=== PATIENT | female | born 1960 | race Two or more races ===

== ENCOUNTER 2017-02-04 05:59 | Day surgery (SDC) | payer OTHER ==
[~2017-02-04] VITALS: Ht 154.9 cm; Wt 86.2 kg
[2017-02-04] VITALS (16 sets, daily range): BP systolic 101–129; BP diastolic 52–75
[2017-02-04] MEDS ORDERED: Sterile Water Irrig 1000ml IRRIG ONE (06:00)
[2017-02-04] MEDS ORDERED: oxyCONTIN 20mg tab ORAL ONE (06:00)
[2017-02-04] MEDS ORDERED: Midazolam 2mg/2ml Inj ONE (06:00)
[2017-02-04] MEDS ORDERED: Lidocaine 1% MPF 10mg/ml 5ml ONE (06:00)
[2017-02-04] MEDS ORDERED: Metoclopramide 10mg/2ml Inj ONE (06:00)
[2017-02-04] MEDS ORDERED: fentaNYL 100 mcg/2 mL IV ONE (06:00)
[2017-02-04] MEDS ORDERED: Dexamethasone 4mg/ml vial ONE (06:00)
[2017-02-04] MEDS ORDERED: NS Irrig 1000ml ONE (06:00)
[2017-02-04] MEDS ORDERED: Propofol 10mg/ml 20ml IV ONE (06:00)
[2017-02-04] MEDS ORDERED: ceFAZolin 1gm in D5W 55ml IVP ONE (06:00)
[2017-02-04] MEDS ORDERED: celeBREX 200mg Cap **SURGERY PATIENTS ONLY ORAL ONE (06:00)
[2017-02-04] MEDS ORDERED: LR 1000ml ONE (06:00)
[2017-02-04] MEDS ORDERED: PANTOPRAZOLE SO40 MG ORAL (06:09)
[2017-02-04] MEDS ORDERED: TRAMADOL HCL50 MG ORAL (06:09)
[2017-02-04] MEDS ORDERED: IBUPROFEN600 MG ORAL (06:09)
[2017-02-04] MEDS ORDERED: NORVASC5 MG ORAL (06:09)
[2017-02-04] MEDS ORDERED: Ketorolac 30mg Inj ONE (06:58)
[2017-02-04] MEDS ORDERED: Duramorph PF 5mg/10ml amp ONE (06:58)
[2017-02-04] MEDS ORDERED: Kenalog-40 1ml Vial ONE (06:58)
[2017-02-04] MEDS ORDERED: EPINEPHrine 1mg/1ml Amp ONE (06:58)
[2017-02-04] MEDS ORDERED: Lidocaine 1% 10mg/ml/Epi 0.005mg/ml 30ml vial INJ ONE (06:59)
[2017-02-04] MEDS ORDERED: Bupivacaine 0.25% Inj 30ml INJ ONE (06:59)
[2017-02-04] MEDS ORDERED: Bupivacaine w/Epi 0.5% 30ml Vial INJ ONE (06:59)
[2017-02-04] MEDS ORDERED: Tylenol #3 tab (300mg/30mg) ORAL PRN (07:15)
[2017-02-04] MEDS ORDERED: D5 1/2NS 1,000 ML IV SCH (07:15)
[2017-02-04] MEDS ORDERED: HYDROmorphone 1mg/ml Carpuject SUBQ PRN (07:15)
[2017-02-04] MEDS ORDERED: Norco 5mg/325mg tab ORAL PRN (07:15)
--- NOTE | 2017-02-04 07:15 | Pre-Procedure Note/Attestation ---
Pre-Procedure Note/Attestation Complete Prior to Procedure Planned Procedure: left Procedure Narrative: knee arthroscopy possible menisectomy, possible synovectomy Indications for Procedure Pre-Operative Diagnosis: left knee internal derangment Attestation I attest that I discussed the nature of the procedure; its benefits; risks and complications; and alternatives (and the risks and benefits of such alternatives ), prior to the procedure, with the patient (or the patient's legal it sales representative). I attest that, if there was a reasonable possibility of needing a blood transfusion, the patient (or the patient's legal it sales representative) was given the [facility] standardized written summary, pursuant to the [place] Blood Safety Act ([place] Health and Safety Code # 1645, as amended). I attest that I re-evaluated the patient just prior to the surgery and that there has been no change in the patient's H&P, except as documented below: SASCHA PANTOJA Feb 04, 2017 07:15
--- NOTE | 2017-02-04 07:18 | Operative Note - PDOC ---
Operative Note Operative Note Pre-op Diagnosis: left knee internal derangment Procedure: see op report Post-op Diagnosis: same as pre-op plus Operative Findings: consistent w/pre-op dx studies Anesthesia: MAC Specimen: none Complications: none Condition: stable Estimated Blood Loss: none Implant(s) used?: SASCHA [place] Feb 04, 2017 07:18
--- NOTE | 2017-02-04 07:26 | Anethesia Preoperative Eval ---
Anesthesia Pre-op PMH/ROS General Date of Evaluation: Feb 04, 2017 Time of Evaluation: 07:25 Anesthesiologist: mariaelena ASA Score: ASA 2 Mallampati Score Class I : Soft palate, uvula, fauces, pillars visible Class II: Soft palate, uvula, fauces visible Class III: Soft palate, base of uvula visible Class IV: Only hard plate visible Mallampati Classification: Class II Surgeon: Melvin Diagnosis: knee pain Surgical Procedure: Dx Left Knee Scope Anesthesia History: none Family History: no anesthesia problems Allergies: Coded Allergies: CODEINE (Verified Allergy, Severe, NAUSEA, VOMITING, DIZZINESS, PALPITATIONS, 02/04/17) LISINOPRIL (Verified Allergy, Severe, COUGHING , 02/04/17) MORPHINE (Verified Allergy, Severe, NAUSEA, VOMITING, DIZZINESS, PALPITATIONS , 02/04/17) Past Medical History Cardiovascular: Reports: HTN Pulmonary: Denies: COPD, CHOLO, asthma, other Gastrointestinal/Genitourinary: Denies: CRI, ESRD, GERD, other Neurologic/Psychiatric: Denies: CVA, TIA, dementia, depression/anxiety, other Endocrine: Denies: DM, hypothyroidism, other, steroids HEENT: Denies: [place] (L), [place] (R), cataract (L), cataract (R), glaucoma, other Hematology/Immune: Denies: DVT, anemia, bleeding disorder, other Musculoskeletal/Integumentary: Denies: DDD, DJD, OA, RA, edema, other Other: obesity PSxH Narrative: face surgery? Anesthesia Pre-op Phys. Exam Physician Exam Last Vital Signs Date Time Temp Pulse Resp B/P Pulse Ox O2 Delivery O2 Flow Rate FiO2 02/04/17 06:30 97.9 54 20 123/75 99 Room Air Constitutional: NAD Neurologic: CN 2-12 intact Cardiovascular: RRR Respiratory: CTA Gastrointestinal: S/NT/ND Airway Exam MO: full Neck: thick ROM: full Dentures: no lower, no upper Anesthesia Pre-op A/P Studies Pre-op Studies: EKG - SB Risk Assessment & Plan Plan: General Status Change Before Surgery: No Pre-Antibiotics Drug: ancef Given Within 1 Hr of Incision: Yes Time Given: 07:30 HUDSON GREEN CRNA Feb 04, 2017 07:26
[2017-02-04] MEDS ORDERED: fentaNYL 100 mcg/2 mL IV PRN (07:30)
[2017-02-04] MEDS ORDERED: Metoclopramide 10mg/2ml Inj IVP PRN (07:30)
[2017-02-04] MEDS ORDERED: NS Irrig 4000ml IRRIG ONE (07:30)
--- NOTE | 2017-02-04 08:20 | Immediate Post-Op Evaluation ---
Immediate Post-Op Evalulation Immediate Post-Op Evalulation Procedure: Left Knee Dx Scope Date of Evaluation: Feb 04, 2017 Time of Evaluation: 08:15 IV Fluids: 500 Blood Pressure Systolic: 105 Blood Pressure Diastolic: 53 Pulse Rate: 74 Respiratory Rate: 14 O2 Sat by Pulse Oximetry: 100 Temperature (Fahrenheit): 98.9 Nausea: No Vomiting: No Complications none Patient Status: awake, reacts, patent Hydration Status: adequate Drug: ancef Given Within 1 Hr of Incision: Yes Time Given: 07:30 HUDSON GREEN CRNA Feb 04, 2017 08:20
--- NOTE | 2017-02-04 10:04 | 48 Hour Post Anesthesia Eval ---
Post Anesthesia Evaluation Procedure: Left Knee Dx Scope Date of Evaluation: Feb 04, 2017 Time of Evaluation: 10:04 Blood Pressure Systolic: 134 0: 77 Pulse Rate: 67 Respiratory Rate: 14 O2 Sat by Pulse Oximetry: 100 Airway: patent Nausea: Yes Vomiting: No Hydration Status: adequate Cardiopulmonary Status: stable Mental Status/LOC: patient returned to baseline Post-Anesthesia Complications: none Follow-up care needed: N/A HUDSON GREEN CRNA Feb 04, 2017 10:04
--- NOTE | 2017-02-04 13:45 | Operative Note - Dictated ---
DATE OF OPERATION: 02/04/2017 PREOPERATIVE DIAGNOSIS: Left knee internal derangement. POSTOPERATIVE DIAGNOSES: 1. Left knee hypertrophic synovial and ligamentum mucosum. 2. Grade 3 chondral damage, distal, medial, and femoral condyle measuring 4 x 4 mm. PROCEDURES: 1. Left knee diagnostic arthroscopy and chondroplasty. 2. Synovectomy medial lateral and patellofemoral compartment. SURGEON: Fredis Charles M.D. ANESTHESIA: MAC. INDICATION FOR PROCEDURE: The patient is a pleasant 56-year-old female, who had continued left knee pain. She had continued pain despite conservative measures. She elected to undergo left knee diagnostic arthroscopy, possible synovectomy, chondroplasty, and meniscectomy based on intraoperative findings. Risks, limitations, expectations, and complications of procedure were discussed in detail. All questions were addressed. DESCRIPTION OF PROCEDURE: An informed consent was obtained. The patient was brought to the operating room and placed under monitored anesthesia control. Under sterile condition, 20 mL of 0.25% Marcaine plain was injected into the left knee. Portal sites were injected with 1% lidocaine with epinephrine. Esmarch was used to exsanguinate the extremity. Inferolateral stab incision made. Trocar was introduced into the knee joint. There is significant hypertrophic fat pad synovial tissue making visualization patellofemoral compartment difficult. The medial compartment was entered. It was again very difficult to visualize. Therefore, the intercondylar notch was entered. Medial working portal was established and synovectomy of the medial retropatellar space as well as the compartments was performed. Medial compartment was then entered and free of any meniscal pathology. The ACL was probed and noted to be intact. Lateral compartment was entered free of any meniscal chondral damage. At this point, the camera was placed in patellafemoral compartment and retropatellar fat pad was removed. Once this was done, patellofemoral compartment was much easier. This area of chondral damage measured 4 x 4 mm in the distal anterior portion of the knee. Gentle chondroplasty was then performed. At this point, the instruments were removed. Portal sites were closed with 3-0 Monocryl sutures. Steri-Strips and sterile dressing were applied. Intraarticular injection containing 0.25% Marcaine with epinephrine, Toradol, Duramorph, and Kenalog was injected. Fredis Charles M.D. DR: LARRY JOB#: [id number] CC: STEPHANE
== END 2017-02-04 12:05 | disposition home or self-care (01) ==
LOC: SUR 05:59
DX: M67.262 Synovial hypertrophy, not elsewhere classified, left lower leg (principal); M94.8X6 Other specified disorders of cartilage, lower leg; I10 Essential (primary) hypertension; E66.9 Obesity, unspecified; Z88.5 Allergy status to narcotic agent; Z88.8 Allergy status to other drugs, medicaments and biological substances
CPT/HCPCS: 29875; 97161; J0171; J0690; J1100; J1885; J2250; J2405; J2704; J2765; J3010; J3301; J3490; J7120; 94003; 94150

== ENCOUNTER 2018-05-12 05:03 | Inpatient (IN) | payer OTHER ==
[2018-05-12] VITALS (13 sets, daily range): BP systolic 95–139; BP diastolic 48–82
[~2018-05-12] VITALS: Ht 154.9 cm; Wt 71.2 kg
[~2018-05-12 05:03] MED LIST: BACLOFEN10 MG ORAL; IBUPROFEN600 MG ORAL; NORVASC5 MG ORAL; PANTOPRAZOLE SO40 MG ORAL; SERTRALINE HCL25 MG ORAL; TRAMADOL HCL50 MG ORAL
[2018-05-12] MEDS ORDERED: LR 1000ml 1,000 ML IVLG SCH (06:07)
--- NOTE | 2018-05-12 06:10 | Anethesia Preoperative Eval ---
Anesthesia Pre-op PMH/ROS General Date of Evaluation: May 12, 2018 Time of Evaluation: 07:11 Anesthesiologist: Antonia ASA Score: ASA 2 Mallampati Score Class I : Soft palate, uvula, fauces, pillars visible Class II: Soft palate, uvula, fauces visible Class III: Soft palate, base of uvula visible Class IV: Only hard plate visible Mallampati Classification: Class II Surgeon: Chris Diagnosis: Neck Pain Surgical Procedure: ACDF C5-6 Anesthesia History: none Family History: no anesthesia problems Allergies: Coded Allergies: CODEINE (Verified Allergy, Severe, NAUSEA, VOMITING, DIZZINESS, PALPITATIONS, 02/04/17) LISINOPRIL (Verified Allergy, Severe, COUGHING , 02/04/17) MORPHINE (Verified Allergy, Severe, NAUSEA, VOMITING, DIZZINESS, PALPITATIONS , 02/04/17) Medications: see eMAR Patient NPO?: Yes NPO Date: May 11, 2018 NPO Time: 1900 Past Medical History Cardiovascular: Reports: HTN Neurologic/Psychiatric: Reports: depression/anxiety Other: obesity - BMI 30 PSxH Narrative: Cholecystectomy, L Knee Sx Anesthesia Pre-op Phys. Exam Physician Exam Last Vital Signs Date Time Temp Pulse Resp B/P (MAP) Pulse Ox O2 Delivery O2 Flow Rate FiO2 05/12/18 05:58 97.0 70 20 122/53 (76) 98 05/12/18 05:48 Room Air Constitutional: NAD Neurologic: CN 2-12 intact Cardiovascular: RRR Respiratory: CTA Gastrointestinal: S/NT/ND Airway Exam Mallampati Score: Class II MO: full ROM: limited Teeth: missing, intact Anesthesia Pre-op A/P Risk Assessment & Plan Assessment: ASA 2 Plan: GA, SED, GlideScope Go Status Change Before Surgery: No Pre-Antibiotics Dru Grams Ancef IV Given Within 1 Hr of Incision: Yes Time Given: 07:31 Keven Knight MD May 12, 2018 06:10
[2018-05-12] MEDS ORDERED: Zemuron 50mg/5ml Inj IV ONE (06:14)
[2018-05-12] MEDS ORDERED: Midazolam 2mg/2ml Inj IVP PRN (06:15)
[2018-05-12] MEDS ORDERED: Metoclopramide 10mg/2ml Inj IVP PRN (06:15)
[2018-05-12] MEDS ORDERED: Ketorolac 30mg Inj IV PRN ×2 (06:15)
[2018-05-12] MEDS ORDERED: DiphenhydrAMINE 50mg/ml Inj IVP PRN (06:15)
[2018-05-12] MEDS ORDERED: fentaNYL 100 mcg/2 mL IV PRN (06:15)
[2018-05-12] MEDS ORDERED: LORazepam Inj 2mg/ml 1ml IV PRN (06:15)
[2018-05-12] MEDS ORDERED: Atropine Sulfate 0.4mg/ml inj IVP PRN (06:15)
[2018-05-12] MEDS ORDERED: Meperidine 50mg/ml Inj(FOR RIGORS ONLY) IVP PRN (06:15)
[2018-05-12] MEDS ORDERED: Acetaminophen (Non formulary) 100 ML IV ONE (06:15)
[2018-05-12] MEDS ORDERED: Lidocaine 1% MPF 10mg/ml 5ml ONE (06:19)
[2018-05-12] MEDS ORDERED: Sodium Chloride 10ml vial INJ ONE (06:19)
[2018-05-12] MEDS ORDERED: Lidocaine 1% Plain 30 ml INJ ONE (06:20)
[2018-05-12] MEDS ORDERED: Bacitracin 50000 Units Vial ONE (06:45)
[2018-05-12] MEDS ORDERED: Thrombin 5000 units TOPIC ONE (06:45)
[2018-05-12] MEDS ORDERED: Gelfoam Size TOPIC ONE (06:45)
[2018-05-12] MEDS ORDERED: Sterile Water Irrig 1000ml IRRIG ONE (07:00)
[2018-05-12] MEDS ORDERED: Dexamethasone 20mg/5ml IVP ONE (07:00)
[2018-05-12] MEDS ORDERED: LR 1000ml ONE (07:00)
[2018-05-12] MEDS ORDERED: Neostigmine 1mg/ml 10ml Inj ONE (07:00)
[2018-05-12] MEDS ORDERED: Propofol 1,000mg/ 100ml btl IV ONE (07:00)
[2018-05-12] MEDS ORDERED: NS Irrig 1000ml ONE (07:00)
[2018-05-12] MEDS ORDERED: Labetalol 5mg/ml 20ml vial IV ONE (07:00)
[2018-05-12] MEDS ORDERED: ceFAZolin sod 1 GM in NS 55 ML IVPB ONE (07:00)
--- NOTE | 2018-05-12 07:01 | Immediate Post-Op Evaluation ---
Immediate Post-Op Evalulation Immediate Post-Op Evalulation Procedure: ACDF C5-6 Date of Evaluation: May 12, 2018 Time of Evaluation: 09:39 IV Fluids: 500 LR Blood Products: 0 Estimated Blood Loss: 10 Urinary Output: 0 Blood Pressure Systolic: 100 Blood Pressure Diastolic: 60 Pulse Rate: 52 Respiratory Rate: 16 O2 Sat by Pulse Oximetry: 100 Temperature (Fahrenheit): 97.3 Pain Score (1-10): 3 Nausea: No Vomiting: No Complications 0 Patient Status: awake, reacts, patent, extubated, none Hydration Status: adequate Dru Grams Ancef IV Given Within 1 Hr of Incision: Yes Time Given: 07:31 Keven Knight MD May 12, 2018 07:01
[2018-05-12] MEDS ORDERED: fentaNYL 100 mcg/2 mL IV ONE ×2 (07:05→08:06)
--- NOTE | 2018-05-12 07:10 | Pre-Procedure Note/Attestation ---
Pre-Procedure Note/Attestation Complete Prior to Procedure Planned Procedure: not applicable Procedure Narrative: C5-C6 ACDF Anterior internal plare fixation Indications for Procedure Pre-Operative Diagnosis: Post trauma HNP radiculopathy Attestation I attest that I discussed the nature of the procedure; its benefits; risks and complications; and alternatives (and the risks and benefits of such alternatives ), prior to the procedure, with the patient (or the patient's legal packaging sales representative). I attest that, if there was a reasonable possibility of needing a blood transfusion, the patient (or the patient's legal packaging sales representative) was given the [place] [facility] standardized written summary, pursuant to the [place] Blood Safety Act ([place] Health and Safety Code # 1645, as amended). I attest that I re-evaluated the patient just prior to the surgery and that there has been no change in the patient's H&P, except as documented below: Dennis Perez MD May 12, 2018 07:10
[2018-05-12] MEDS ORDERED: Chloraseptic Spray 20mL Bottle ORAL PRN (07:15)
[2018-05-12] MEDS ORDERED: HYDROcodone/Acetamin 10/325 tab ORAL PRN (07:15)
[2018-05-12] MEDS ORDERED: HYDROmorphone 1mg/ml Carpuject SUBQ PRN ×2 (07:15→07:30)
[2018-05-12] MEDS ORDERED: traMADol 50mg tab ORAL PRN (07:15)
--- NOTE | 2018-05-12 08:13 | 48 Hour Post Anesthesia Eval ---
Post Anesthesia Evaluation Procedure: ACDF C5-6 Date of Evaluation: May 12, 2018 Time of Evaluation: 11:45 Blood Pressure Systolic: 116 0: 67 Pulse Rate: 68 Respiratory Rate: 18 Temperature (Fahrenheit): 98.2 O2 Sat by Pulse Oximetry: 99 Airway: patent Nausea: No Vomiting: No Pain Intensity: 3 Hydration Status: adequate Cardiopulmonary Status: Stable Mental Status/LOC: patient returned to baseline Follow-up Care/Observations: 0 Post-Anesthesia Complications: 0 Follow-up care needed: ready to discharge Keven Knight MD May 12, 2018 08:13
[2018-05-12] MEDS ORDERED: Glycopyrrolate 0.2mg/ml 1ml Vial ONE (08:56)
[2018-05-12] MEDS ORDERED: Naloxone 0.4mg/ml Inj ONE (08:56)
[2018-05-12] MEDS ORDERED: Sertraline 50mg tab ORAL SCH (09:00)
--- NOTE | 2018-05-12 09:16 | Brief Operative Note ---
Immediate Post Operative Note Operative Note Pre-op Diagnosis: Post trauma HNP radiculopathy Procedure: ACDF C5-C6 Body Habotus SSEP Magnification Xray Anterior Plate Osteopromotive material placement Interbody Titanium Device Post-op Diagnosis: same as pre-op Findings: consistent w/pre-op dx studies Surgeon: Chris BAXTER It Security Engineer: Tara HANCOCK Anesthesiologist: Antonia BAXTER Anesthesia: general Specimen: yes Complications: none Condition: stable Fluids: anesthesia Estimated Blood Loss: minimal Drains: none Implant(s) used?: Yes Dennis Perez MD May 12, 2018 09:16
[2018-05-12] MEDS ORDERED: Naloxone 0.4mg/ml Inj IVP PRN (09:30)
[2018-05-12] MEDS ORDERED: LORazepam 0.5mg tab ORAL PRN (10:00)
--- NOTE | 2018-05-12 10:05 | Diagnostic Imaging Report ---
INDICATION: Pain, intraoperative TECHNIQUE: Intraoperative imaging Fluoroscopy time: 10.1 seconds Total dose: 0.49 mGy Total number of images: 3 COMPARISON: None FINDINGS: Intraoperative images demonstrates a surgical tool projected at the anterior aspect of the C5-6 disc. Subsequent images demonstrate anterior fusion and placement of a disc spacer at C5 and C6. IMPRESSION: Intraoperative imaging, as described
[2018-05-12] MEDS ORDERED: D5 1/2NS 1,000 ML IV SCH (11:17)
--- NOTE | 2018-05-12 16:30 | Operative Note - Dictated ---
DATE OF OPERATION: 05/12/2018 PRIMARY SURGEON: Dennis Perez, Ph.D, M.D. CHIPS SCREEN TENDER: KARISSA Guerin. ANESTHESIOLOGIST: Keven Knight M.D. ANESTHESIA: General with intubation. ADMITTING/PREOPERATIVE DIAGNOSIS: Cervical herniated nucleus pulposus post trauma with radiculopathy/neurologic deficit. POSTOPERATIVE DIAGNOSIS: Cervical herniated nucleus pulposus post trauma with radiculopathy/neurologic deficit. OPERATIVE PROCEDURE: Anterior cervical diskectomy with fusion C5-C6, placement of interbody device correction deformity, placement of osteopromotive material in combination with local autograft, anterior internal plate fixation, intraoperative fluoroscopy interpreted by surgeon, and high-powered microscopic dissection. SPECIMEN: Disc fragments to pathology. DESCRIPTION OF PROCEDURE: The patient was brought to the operating room and in supine position, general anesthesia intubation was induced. IV antibiotics and IV Decadron were administered 30 minutes prior to incision time. After determination of appropriate position for incision placement, the skin was marked with a left lateral incision in a skin fold. Sterilely prepped and draped free in usual sterile fashion. A transverse incision over the appropriate interval was sharply placed through dermis and epidermis. Electrocautery dissection was carried through the subcutaneous tissue to the level of the platysmas muscle that was identified, isolated, and transected in line with the incision. Blunt dissection was carried medial to the left sternocleidomastoid muscle and to the carotid sheath through the deep cervical pretracheal fascia to the midline between the right and left longus colli muscles. A spinal needle bent at 90-degree angle so as to avoid penetration greater than 3 mm into the disk space was placed under direct high-power magnification. A cross-table image was obtained under sterile conditions demonstrating the level as the correct level for the dissection. Level was marked. Needle removed. Retractors placed under the subperiosteally elevated longus colli muscles. They were not elevated greater than 3 mm in the medial and lateral extents. Anterior osteophyte was resected under high-power magnification with Midas Enrique bur dissection. Diskectomy performed to the posterior longitudinal ligament followed with Midas Enrique bur dissection of superior inferior osteophytes and no cartilaginous overlay to the endplates without violation of subchondral bone. Posterior longitudinal ligament resected. Disc fragment retrieved. Wound irrigated. No dural tears or leaks at anytime during the procedure. SSEP monitoring stable. Interpositional grafting with a titanium graft containing bioactive material with combination of local autograft lordotic tamped into position. Midline determined with the trial and position of the graft after insertion as midline determined too also. Posterior extents determined as excellent. The 10 pound of traction on the neck was removed. Anterior internal plate fixation in a compressive fashion with 13 mm screws was placed over the involved interval. Screws were locked into place. AP and lateral radiographs under sterile conditions taken and recorded demonstrating a midline positioning, excellent alignment, screw positioning excellent. Wound was irrigated with antibiotic-containing saline. Retractors removed. Exploration revealed no obvious excoriation or laceration of vital structures. Interval was re-irrigated with antibiotic-containing saline followed by application of FloSeal. Reapproximation of the platysmas muscle followed by subcuticular reapproximation surgical strips, sterile bandage maintained in place with tape. The patient was awakened, extubated in the operating room, and transported to postop recovery in good stable condition. Dennis Perez M.D. DR: BRUCE JOB#: [id number] CC:
[2018-05-12] MEDS ORDERED: TransDerm Scop 1mg/72HR Patch TDERMAL SCH (17:15)
[2018-05-12] MEDS ORDERED: LR 1000ml 1,000 ML IV ONE (17:15)
--- NOTE | 2018-05-12 17:15 | Consultation ---
DATE OF CONSULTATION: 05/12/2018 CONSULTING PHYSICIAN: Memo Watson M.D. REFERRING PHYSICIAN: Dennis Perez M.D. REASON FOR CONSULTATION: Acute pain consult. HISTORY OF PRESENT ILLNESS: Dear Dr. Perez, Thank you kindly for consulting me to evaluate and render an opinion as to how to proceed in the management of the patient's acute postoperative cervical spine pain after cervical spine instrumentation surgery today. The patient is a pleasant 57-year-old obese woman, who fell in a parking lot injuring her left arm and face. Today, she presented for cervical spine instrumentation surgery to help with her refractory pain. I saw the patient at the bedside with Armenian-speaking relays draftsperson, Dylon, and the patient's along with nurse RN Audrey, to help improve the patient's postoperative pain and help expedite her hospital discharge. I performed detailed history and physical examination. I reviewed the medical record in detail including multiple preoperative records from Dr. Forrest along with diagnostic testing including laboratory studies and imaging reports. I reviewed multiple records from today's date of surgery at [facility], dated May 12, 2018, including records from the nursing and pharmacy department, and the surgery suite. PAST MEDICAL HISTORY: 1. Acute postoperative cervical spine pain, status post cervical spine instrumentation surgery by Dr. Dennis Perez, April 2018. 2. Fall accident. 3. Obesity. 4. Anxiety and depression. 5. GERD. 6. Hypertension. 7. Multiple drug allergies. MEDICATIONS: At home, tramadol, Zoloft, Protonix, NSAIDs, baclofen, and Norvasc. PAST SURGICAL HISTORY: Left knee surgery. SOCIAL HISTORY: The patient is accompanied at the bedside by her . She has seven children. She denies tobacco, alcohol, or illicit drug use. FAMILY HISTORY: Noncontributory. ALLERGIES: Codeine and morphine cause nausea and vomiting. The patient has tolerated tramadol without problems. She does not have any recall regarding the usage of Dilaudid or hydrocodone. She does have a prescription already for Vicodin for outpatient usage. Lisinopril. REVIEW OF SYSTEMS: Per Dr. Forrest. PHYSICAL EXAMINATION: VITAL SIGNS: Age 57, height 5 feet 1 inch, weight 190 pounds, body mass index is 36. Vital signs in the medical record. HEENT: Extraocular muscles intact. Pupils are equal, round, and reactive to light and accommodative. No Carrillo's palsy. No Joe syndrome. NECK: A detailed neck exam per Dr. Perez. CHEST: Clear to auscultation. HEART: Regular rate and rhythm. ABDOMEN: Obese. Positive bowel sounds. BREASTS: Deferred. GENITOURINARY: Deferred. NEUROLOGIC: A detailed neurologic exam per Dr. Perez. Moving all extremities x4 preoperatively. LABORATORY AND DIAGNOSTIC DATA: Laboratory studies from May 04, 2018. Hepatitis B and C, and HIV are all negative. INR 0.9. White count 8, hematocrit 39, platelets 300. Urinalysis negative. PTT 27. Hemoglobin A1c normal 5.6, glucose 89, BUN 19, creatinine 0.7, sodium 141, potassium 3.9, chloride 104, bicarb 23, calcium 10.0. Total protein 7.4. Albumin 4.5. Total bilirubin 0.3. Alkaline phosphatase 100, AST 18, and ALT 23. CT cervical spine dated March 14, 2018. Impression, multiple level 2 mm disc osteophyte complexes with mild bilateral foraminal stenosis at C5-C6. Preoperative chest x-ray May 04, 2018, shows no acute intrathoracic disease. A 12-lead EKG shows normal sinus rhythm, ventricular rate 64, no evidence for acute cardiac ischemia. IMPRESSION: 1. Acute postoperative cervical spine pain, status post cervical spine instrumentation surgery by Dr. Dennis Perez, April 2018. 2. Fall accident. 3. Obesity. 4. Anxiety and depression. 5. GERD. 6. Hypertension. 7. Multiple drug allergies. TREATMENT RECOMMENDATIONS: After reviewing the medical record in detail and examined the patient at bedside, I have devised the following analgesic plan. The patient has multiple drug allergies. She states that codeine and morphine both cause significant vomiting. I have added multiple antiemetics starting with Zofran 4 mg intravenously every four hours p.r.n. for nausea and vomiting as a first-line agent. I have also ordered a second-line agent of Phenergan 12.5 mg intramuscularly every eight hours p.r.n. for refractory nausea. The patient has tolerated tramadol in the past, so I have ordered a dose of 50 mg of Ultram every eight hours p.r.n. for mild pain. The patient has a prescription already for Sub[place]o for outpatient usage, provided by Dr. Perez in the preop appointment. The patient does not have experience this medication that she can recall. Therefore, we will try [place] at a dose of 10/325 one tablet orally every three hours p.r.n. for moderate pain. Morphine is not tolerated, but the patient does not have any recall regarding Dilaudid. Therefore, I have ordered a dose of Dilaudid 0.5 mg subcutaneously every two hours p.r.n. for severe breakthrough pain. I have chosen the subcutaneous route, so that there may be less risk for nausea. In case of any headache complaints, I have ordered Fioricet tablets one tablet every eight hours p.r.n. The patient does have chronic anxiety and depression. I have restarted her Zoloft 50 mg daily and I have also ordered low-dose p.r.n. Ativan q. 6 hours in case of any anxiety or panic attacks. I will empirically place the patient on Protonix 40 mg nightly for GI ulcer prophylaxis. The patient chronically uses a proton pump inhibitor for chronic GERD and her obesity. I have also ordered p.r.n. dose of Mylanta 30 mL q.6 hours in case of any GERD symptom exacerbation. I have ordered Benadryl 25 mg q. 6 hours in case of any itching complaints. I will restart the patient on her Norvasc. I have split her daily dose of Norvasc, 10 mg Norvasc into b.i.d. dosing at a lower 5 mg dose. This dose will be held if her systolic blood pressure is less than 130 mmHg. I have also ordered p.r.n. dose of Catapres 0.1 mg every eight hours for systolic blood pressure readings greater than 160 mmHg. To help with any topical sore throat complaints, I have ordered Chloraseptic spray at the bedside. I have ordered incentive spirometer in this obese woman to encourage good pulmonary toilet and help reduce the risk of postoperative pneumonia and atelectasis. I will defer DVT prophylaxis to the surgeon. Memo Watson M.D. DR: HUY JOB#: [id number] CC:
[2018-05-12] MEDS ORDERED: Hydromorphone 0.5mg/0.5ml inj SUBQ SCH (17:16)
[2018-05-12] MEDS ORDERED: Chloraseptic Spray 20mL Bottle ORAL SCH (18:00)
[2018-05-12] MEDS ORDERED: LR 1000ml 1,000 ML IVLG ONE (18:00)
[2018-05-12] MEDS ORDERED: LORazepam 0.5mg tab ORAL SCH (21:00)
[2018-05-13] VITALS: BP 117/63
[2018-05-13 04:00] VITALS: BP 117/60
[2018-05-13 08:00] VITALS: BP 112/64
[2018-05-13] MEDS ORDERED: Sertraline 50mg tab ORAL SCH (09:00)
[2018-05-13] MEDS ORDERED: Chloraseptic Spray 20mL Bottle ORAL ONE (09:09)
[2018-05-13] MEDS ORDERED: Chloraseptic Spray 20mL Bottle ORAL PRN (10:15)
--- NOTE | 2018-05-13 10:15 | Progress Note ---
DATE: 05/13/2018 ACUTE PAIN MANAGEMENT PHYSICIAN PROGRESS NOTE MEDICATIONS: Medication administration record reviewed. Medications include Ultram, Zoloft, Phenergan, Protonix, Zofran, Narcan, Ativan, [place], Benadryl, Catapres, Soma, Norvasc, Mylanta, and Fioricet. LABORATORY STUDIES: No interval laboratory studies. OBJECTIVE: VITAL SIGNS: Afebrile, pulse 71, respirations 18, blood pressure 112/64, and oxygen saturation 97% on room air. I spent over 60 minutes in consultation today. I saw the patient at the bedside with the nurse RN, Haroldo. I had multiple discussions with multiple nurses over the past 24 hours. The patient was having persistent nausea symptoms with multiple episodes of emesis. She failed multiple trials of Zofran. She failed intramuscular Phenergan. Finally, I directed the pharmacist, Patel in discussion, to dispense a scopolamine patch, which was applied yesterday evening. Thankfully over the past 10 hours, the patient has no longer had any vomiting episodes and is able to tolerate a soft diet and fluids to adequately hydrate herself. The patient has been out of bed ambulating and voiding urine. She is afebrile. Her pain has been well controlled using subcutaneous Dilaudid injections. The patient has a supply of tramadol already at home and also a prescription for [place] from Dr. Perez for outpatient usage. The patient is swallowing, breathing, and phonating within normal limits after her neck surgery. I examined the cervical spine dressing, which was clean and dry. There was normal postoperative swelling and the patient appears non-toxic. She denies any shortness of breath or chest pain. She appears neurologically intact grossly. Moving all extremities x4. I explained proper use of the incentive spirometer and encouraged the patient to be aggressive walking and not to be bed-bound in order to reduce the risk for deep venous thrombosis postoperatively. The patient understood with assistance of a Tajik-speaking medical interpreter and I agree with discharge her to home at this time. The patient will follow up with Dr. Perez, outpatient clinic for surgical followup. Memo Watson M.D. DR: HUY JOB#: [id number] CC:
[2018-05-13 12:00] VITALS: BP 108/75
[2018-05-13] MEDS ORDERED: 1/2 NS 1000ml IV ONE (13:33)
--- NOTE | 2018-05-17 14:21 | Discharge Summary ---
Discharge Summary Hospital Course Date of Admission May 12, 2018 at 11:00 Date of Discharge May 13, 2018 at 13:34 Admitting Diagnosis Cervical herniated nucleus pulposus post trauma with radiculopathy/neurologic deficit. Reason for Hospitalization: elective surgery HPI Daja Mcmillan is a 57 year old female who was admitted on May 12, 2018 at 11: 00 for cervical herniated nucleus pulposus post trauma with radiculopathy/ neurologic deficit. Patient was admitted for further management. Consultations dr Watson -pain specialist Procedures s/p 05/[address] Perez Anterior cervical diskectomy with fusion C5-C6, placement of interbody device correction deformity, placement of osteopromotive material in combination with local autograft, anterior internal plate fixation, intraoperative fluoroscopy interpreted by surgeon, and high-powered microscopic dissection. Hospital Course status post surgery course of recovery uneventful initially IV fluids s/p perioperative antibiotics neurovascular status closely monitored, stable dressing clean dry and intact pain management addressed pain specialist followed; pain controlled hemodynamically stable ambulated with PT /OT fall precautions maintained; safe for ambulation tolerated liquid diet , IV fluids discontinued Chloraseptic spray/lozenges prn for comfort GI prophylaxis provided blood pressure was managed with calcium channel bryn and remained stable home medications for depression resumed voided freely bowel regimen instituted patient was stable for discharge discharge instructions provided follow up with surgeon as advsied FINAL DIAGNOSES cervical herniated nucleus pulposus post trauma with radiculopathy/neurologic deficit. s/p ACDF C5-C6 Obesity. Anxiety and depression. GERD. Hypertension. Discharge Medications Continued Medications: Amlodipine Besylate (Norvasc) 5 Mg Tablet 10 MG ORAL DAILY, TAB Baclofen* (Baclofen*) 10 Mg Tablet 10 MG ORAL BID, TAB (This prescription has been renewed) Ibuprofen* (Motrin*) 600 Mg Tablet 600 MG ORAL BID, #30 TAB 0 Refills (This prescription has been renewed) Pantoprazole* (Pantoprazole*) 40 Mg Tablet.dr 40 MG ORAL DAILY, TAB (This prescription has been renewed) Sertraline Hcl* (Sertraline Hcl*) 25 Mg Tablet 50 MG ORAL DAILY, TAB (This prescription has been renewed) Tramadol Hcl* (Ultram*) 50 Mg Tablet 50 MG ORAL BID PRN for PRN, #30 TAB 0 Refills (This prescription has been renewed) Discharge Condition Upon Discharge: stable Discharge Disposition Patient was discharged to Home () Discharge Instructions Discharge Instructions Special Instructions I have been assigned to complete a D/C Summary on this account. I was not involved in the patient management Radha Lazo NP May 17, 2018 14:21
== END 2018-05-13 13:34 | disposition home or self-care (01) | DRG 473 ==
LOC: SUR 05:03 → 3E 11:00
PROC: 0RB30ZZ Excision of Cervical Vertebral Disc, Open Approach (ICD-10-PCS; principal; 2018-05-12 07:00)
PROC: 0RG10A0 Fusion of Cervical Vertebral Joint with Interbody Fusion Device, Anterior Approach, Anterior Column, Open Approach (ICD-10-PCS; principal; 2018-05-12 07:00)
DX: M50.122 Cervical disc disorder at C5-C6 level with radiculopathy (principal); E66.9 Obesity, unspecified; F41.8 Other specified anxiety disorders; K21.9 Gastro-esophageal reflux disease without esophagitis; I10 Essential (primary) hypertension; Z88.8 Allergy status to other drugs, medicaments and biological substances; G89.18 Other acute postprocedural pain; W19.XXXS Unspecified fall, sequela
CPT/HCPCS: 36415; 72040; 76001; 86850; 86900; 86901; 87081; 94003; 94150; J2405; J2710